=== PATIENT | female | born 1995 | race Caucasian/White ===

== ENCOUNTER 2024-12-25 18:26 | Emergency (ER) | payer SELFPAY ==
--- NOTE | 2024-12-25 18:33 | ED.FEMALEGU ---
HPI - Female Genitourinary General Chief complaint: Urogenital-Female Stated complaint: chills, lower back pain, nausea Time Seen by Provider: 12/25/24 18:45 Source: patient and RN notes reviewed Mode of arrival: ambulatory Limitations: no limitations History of Present Illness HPI Narrative: 29-year-old female presents [facility] complaining of urinary symptoms for 1 week. Patient says as she was having increased frequency and foul-smelling urine over the last week that she had a UTI and was taking [id number] medicine to help with her symptoms. Study today she has developed low back pain, fevers, chills, nausea, vomiting. Patient denies any abdominal pain, blood in urine or burning with urination. Patient was admitted about 9 months ago at a hospital for pyelonephritis he was given IV antibiotics. Patient says she has Zofran at home and she says it helps with nausea at the time she is able to keep fluids down until the medication wears off and then she will vomit again. A suggest took ibuprofen prior to arrival. Related Data Home Medications ?Medication ?Instructions ?Recorded ?Confirmed ?Last Taken ?Type lisdexamfetamine 30 mg capsule mg 12/25/24 Unknown History (Christine) Allergies Allergy/AdvReac Type Severity Reaction Status Date / Time No Known Allergies Allergy Verified 12/25/24 18:41 Review of Systems Review of Systems: CONSTITUTIONAL: Positive for fever, chills. Negative for body aches or sweats. EYES: Denies visual changes, redness, or discharge. ENT: Denies rhinorrhea, congestion, sore throat, or otalgia. CARDIOVASCULAR: Denies chest pain, palpitations, or edema. RESPIRATORY: Denies cough or dyspnea. GASTROINTESTINAL: Denies abdominal pain, or diarrhea. Positive for nausea and vomiting. GENITOURINARY: Denies dysuria or hematuria. Positive for increased frequency, hesitancy, SKIN: Denies rash or itching. MUSCULOSKELETAL: Positive for low back pain negative for joint pain, or myalgia. NEUROLOGIC: Denies headache, numbness, or weakness. PSYCHIATRIC: Denies anxiety or depression. All other systems reviewed are negative, except as documented in HPI. PMFSH Comments At the time of my signature, I reviewed and agree with the nursing past medical, surgical, social, and family history. There is no relevant family history pertinent to the patient complaint. Exam Narrative: GENERAL: This is a well-nourished, well-developed adult, in no apparent distress. They are non ill-appearing, nontoxic appearing. HEAD: normocephalic, atraumatic. EYES: Sclera clear/white. Conjunctiva normal. Vision is grossly intact. Extraocular movements intact EARS: External ears normal, Hearing grossly intact. NOSE: External nose normal THROAT: Mucous membranes moist, posterior pharynx clear, without erythema or swelling. Uvula midline. NECK: Neck supple, non-tender without lymphadenopathy, masses or thyromegaly. CARDIOVASCULAR: Tachycardic rate and rhythm without murmurs, gallops, or rubs. RESPIRATORY: Clear to auscultation. Breath sounds equal bilaterally. No wheezes, rales, or rhonchi. GASTROINTESTINAL: Abdomen soft, flat, non-tender, nondistended. Mild suprapubic tenderness. Bowel sounds are active. No hepato-splenomegaly, or palpable masses. No guarding. No rebound tenderness. SKIN: warm, Dry, intact with no suspicious lesions or rash, good texture and turgor. NEURO: awake, alert, and oriented to person, place and time. There were no obvious focal neurologic abnormalities. EXTREMITIES: No joint tenderness, effusion, or edema noted. BACK: Nontender without deformity. No CVA tenderness. Course Course Emergency Course: Portions of this record may have been created with voice recognition software Level of Care: Express Care Visit Vital Signs Vital signs: Vital Signs Temperature 100.2 F H 12/25/24 18:36 Pulse Rate 118 H 12/25/24 18:36 Respiratory Rate 20 12/25/24 18:36 Blood Pressure 147/93 H 12/25/24 18:36 Pulse Oximetry 100 12/25/24 18:36 Oxygen Delivery Room Air 12/25/24 18:36 Temperature 100.2 F H 12/25/24 18:36 Pulse Rate 118 H 12/25/24 18:36 Respiratory Rate 20 12/25/24 18:36 Blood Pressure 147/93 H 12/25/24 18:36 Pulse Oximetry 100 12/25/24 18:36 Oxygen Delivery Room Air 12/25/24 18:36 Reviewed MDM - Female Genitourinary MDM Narrative Medical decision making narrative: Patient's urine dipstick shows evidence of urinary tract infection. Patient did vomit once while she was here at the [facility]. Patient was given a dose of Zofran ODT followed by p.o. challenge. Patient tolerated p.o. challenge well without vomiting after Zofran administration. Patient states she is feeling better after drinking fluids and receiving Zofran. Given patient's history and symptoms it is likely she could be developing a pyelonephritis. Patient was given a dose of ceftriaxone. Will treat empirically with Augmentin. Discussed physical exam findings. Advised supportive measures and strict ER return precautions discussed. Pt is stable for outpt treatment and f/u. Differential Diagnosis Differential diagnosis: Likely urinary tract infection, cystitis and other (Pyelonephritis) Lab Data Attestation: I reviewed the patient's lab results. Critical Care Time Critical Care Time Critical Care Time: No Discharge Plan Discharge Clinical Impression: Urinary tract infection Qualifiers: Urinary tract infection type: site unspecified Hematuria presence: with hematuria Qualified Code(s): N39.0 - Urinary tract infection, site not specified Patient Disposition: Home Condition: Stable Instructions: Antibiotic Form, Urinary Tract Infection in Women (ED) Additional Instructions: You were given a shot of ceftriaxone this is a long-acting antibiotic. Take the antibiotic as prescribed Take the Zofran as needed for nausea and vomiting. The urine will be sent of for a culture to identify what type of bacteria is causing your infection. If the culture shows that the antibiotic will not get rid of your infection, you will be notified and a new antibiotic will be called in for you. Increase water intake you will need to follow up with your PCP, call to schedule an appointment. If your unable to keep any fluids or food down, worsening fevers, worsening pain, or any other concerns please go to the ER immediately. Patient Language: B[place]udian Prescriptions: New ondansetron 4 mg tablet,disintegrating 4 mg PO Q8H PRN (Reason: nausea and vomiting) Qty: 12 0RF amoxicillin-pot clavulanate 875-125 mg tablet 1 tablet PO Q12H 10 Days Qty: 20 0RF No Action lisdexamfetamine [Vyvanse] 30 mg capsule Follow-up/Referrals: PHYSICIAN NOT ON STAFF,NONSTAFF [Primary Care Provider] - Stand Alone Forms: Work/School Release IP Time of Disposition: 19:29
[2024-12-25 18:36] VITALS: BP 147/93; PULSE 118; RESP 20; TEMP 37.9; O2SAT 100
[2024-12-25] MEDS: ONDANSETRON HCL ODT 4 MG TABLET PO (18:57)
[2024-12-25] MEDS: cefTRIAXone 1 GM, LIDOCAINE 1% LOCAL INJ 2.1 ML IM (19:10)
--- NOTE | 2024-12-25 19:28 | PC.NURSE ---
1928 PT drinking water without difficulty no N/V at this time.
[2024-12-26 11:57] LABS: EDUAAPPEAR Clear; EDUABILI Negative (Negative); EDUABLOOD Trace (Negative); EDUACOLOR1 Light/Pale; EDUAGLUCOSE Negative (Negative); EDUAKETONE Negative (Negative); EDUALEUKO 1+ (Negative); EDUANITRATE Negative (Negative); EDUAPROTEIN Negative (Negative); EDUAUROBILI 0.2
== END 2024-12-25 19:41 | disposition home or self-care (01) ==
DX: N39.0 Urinary tract infection, site not specified (principal)
CPT/HCPCS: 81003; 87086; 96372; 99203; A9270; G0463; J0696; J2003

== ENCOUNTER 2025-04-11 12:34 | Emergency (ER) | payer OTHER, SELFPAY ==
--- NOTE | 2025-04-11 12:35 | ED_ITS ---
HPI - Nausea/Vomiting/Diarrhea General Chief complaint: Nausea/Vomiting/Diarrhea Stated complaint: Vomiting/Back Pain Time Seen by Provider: 04/11/25 12:35 Source: patient Mode of arrival: ambulatory Limitations: no limitations History of Present Illness HPI Narrative: Alisha is a 30-year-old female patient presenting to the clinic today with complaints of nausea, vomiting, and a rash to her mid upper back. She reports rash has been there for few days but she developed nausea and vomiting while work today. Rash is slightly itchy and mildly irritating to the mid upper back. Does report some slight abdominal cramping prior to having vomiting. No abdominal pain at this time. No fevers, chills, body aches. Denies any urinary symptoms. Last menstrual period was March 27, 2025. Denies any concern for pre gnancy. Has not taken any medications for her symptoms. Related Data Allergies Allergy/AdvReac Type Severity Reaction Status Date / Time No Known Allergies Allergy Verified 04/11/25 12:51 Review of Systems Review of Systems: Pertinent positives per HPI. Patient denies any fever, chills, rash, headache, visual changes, dizziness, cough, shortness of breath, chest pain, palpitations, diarrhea, constipation, abdominal pain, or any urinary issues. PMFSH Comments At the time of my signature, I reviewed and agree with the nursing past medical, surgical, social, and family history. There is no relevant family history pertinent to the patient complaint. Exam Narrative: General: Well-developed, well nourished, in no apparent distress Head: Normocephalic, atraumatic Eyes: Pupils equally round and reactive to light bilaterally, EOM intact, sclera and conjunctive clear, no discharge, lids normal Ears: TMs intact and clear, ear canals clear, no drainage, grossly hearing normal. Nose: Nares patent, no discharge, no inflammation, no sinus tenderness. Mouth: Oral pharynx without lesions or masses, good dentition, MMM. Neck: Supple, trachea midline, no enlargement of anterior or posterior cervical nodes, no thyroid masses or goiter palpable. Cardio: Regular rate and rhythm, s1 and s2 normal, no murmur appreciated. Resp: Clear to auscultation bilaterally, no rhonchi, rales, wheezing or rubs Abdomen: Soft, pliable, bowel sounds present in all quadrants, non-tender to palpation, no organomegly, no CVAT tenderness. Integumentary: [place], warm, and dry, circular, 1/2 dollar sized mildly raised, brown scaly rash with central clearing to the mid upper back Course Course Emergency Course: Portions of this record may have been created with voice recognition software. Level of Care: Express Care Visit Vital Signs Vital signs: Vital Signs Temperature 36.7 C 04/11/25 12:48 Pulse Rate 93 04/11/25 12:48 Respiratory Rate 20 04/11/25 12:48 Blood Pressure 138/90 04/11/25 12:48 Pulse Oximetry 100 04/11/25 12:48 Oxygen Delivery Room Air 04/11/25 12:48 Temperature 36.7 C 04/11/25 12:48 Pulse Rate 93 04/11/25 12:48 Respiratory Rate 20 04/11/25 12:48 Blood Pressure 138/90 04/11/25 12:48 Pulse Oximetry 100 04/11/25 12:48 Oxygen Delivery Room Air 04/11/25 12:48 Vital signs reviewed MDM - Nausea/Vomiting/Diarrhea MDM Narrative Medical decision making narrative: At the time of visit patient is resting comfortably on the exam table. Patient appears to be nontoxic. Complaints of nausea, vomiting, and a rash to her mid upper back. She reports rash has been there for few days but she developed nausea and vomiting while work today. Rash is slightly itchy and mildly irritating to the mid upper back. Does report some slight abdominal cramping prior to having vomiting. No abdominal pain at this time. No fevers, chills, body aches. Denies any urinary symptoms. Last menstrual period was March 27, 2025. Denies any concern for . Has not taken any medications for her symptoms. On exam patient has a circular rash with central clearing and scaling to the mid upper back. Abdominal assessment is normal. Plan: I suspect patient has tinea corpus to the mid upper back and acute nausea and vomiting. Prescription for Zofran and clotrimazole was sent to the pharmacy. Supportive measures were discussed with the patient and they voiced understanding discharge instructions and agrees to treatment plan. Return preca utions reviewed Differential Diagnosis Differential diagnosis: Likely food poisoning, gastroenteritis, drug-induced nausea and vomiting, dehydration and other (Tinea corpus, cellulitis, skin infection, impetigo, eczema) Discharge Plan Discharge Clinical Impression: Acute nausea with nonbilious vomiting, Tinea corporis Patient Disposition: Home Condition: Stable Instructions: Antibiotic Form, Tinea Corporis (ED), Acute Nausea and Vomiting (ED) Additional Instructions: Take prescription medications only as prescribed-clotrimazole cream and ondansetron Increase fluids and stay well hydrated May take Tylenol or motrin as directed on bottle for pain/fever Clear liquids x 24 hours then advance as tolerated for nausea/vomiting Go to the ED if you develop a worsening in your condition- high fever not controlled by Tylenol or Motrin, dehydration, weakness, lethargy, shortness of breath, or chest pain. Follow up with your PCP in 3-5 days if symptoms persist. Patient Language: Khmer Prescriptions: New clotrimazole 1 % cream 1 applic topical BID 14 Days Qty: 30 0RF ondansetron 8 mg tablet,disintegrating 8 mg PO Q8H PRN (Reason: nausea and vomiting) 3 Days Qty: 10 0RF Follow-up/Referrals: UNKNOWN,DOCTOR [Non-Staff] Stand Alone Forms: Work/School Release IP Time of Disposition: 13:00 Quality NIHSS Nursing Documentation ED NIHSS nursing documentation: reviewed/agree
[2025-04-11 12:48] VITALS: BP 138/90; PULSE 93; RESP 20; TEMP 36.7; O2SAT 100
== END 2025-04-11 13:07 | disposition home or self-care (01) ==
PROVIDERS: Emergency Provider Nurse Practitioner Family
DX: R11.2 Nausea with vomiting, unspecified (principal); B35.4 Tinea corporis
CPT/HCPCS: 99213; G0463

== ENCOUNTER 2025-05-22 10:08 | Emergency (ER) | payer OTHER, SELFPAY ==
[2025-05-22 10:18] VITALS: BP 115/85; PULSE 81; RESP 16; TEMP 36.3; O2SAT 100
--- NOTE | 2025-05-22 10:32 | ED.URI ---
HPI - URI/Sore Throat General Chief Complaint: Upper Respiratory Infection Stated Complaint: Fever/Sore Throat/Body Aches Time Seen by Provider: 05/22/25 10:44 Source: patient and RN notes reviewed Mode of arrival: ambulatory Limitations: no limitations History of Present Illness HPI Narrative: 30-year-old female presents with concern for 2 day history of general malaise, fever, body aches and scratchy throat. Reports she had an at home positive COVID test. Reports she needs a work ago. MD elicited complaint: cough and nasal congestion Related Data Allergies Allergy/AdvReac Type Severity Reaction Status Date / Time No Known Allergies Allergy Verified 05/22/25 10:17 Review of Systems Review of Systems: CONSTITUTIONAL: Reports malaise, chills, sweats EYES: Denies visual changes, redness, or discharge. ENT: Denies rhinorrhea, congestion, sinus pain, otalgia. Reports scratchy throat. CARDIOVASCULAR: Denies chest pain, palpitations, or edema. RESPIRATORY: Reports cough. Denies dyspnea. GASTROINTESTINAL: Denies abdominal pain, nausea, vomiting, diarrhea SKIN: Denies rash or itching. MUSCULOSKELETAL: Reports myalgia. NEUROLOGIC: Denies headache. All systems reviewed & are unremarkable except as noted in HPI and below PMFSH Comments At time of signature, agree with nursing past medical, surgical, social and family history. There is no relevant family history pertinent to the presenting complaint Exam Narrative: GENERAL: Well-appearing, well-nourished, and in no acute distress. HEAD: Normocephalic EYES: PERRLA, conjunctivae clear ENT: Nares clear. Mucous membranes moist. TM pearly cote with dull light reflex bilaterally; no tragal tenderness. Oropharynx not erythematous without lesions. Tonsils not enlarged and without exudate, no drooling, no hoarseness, no trismus, uvula midline. NECK: Supple. No lymphadenopathy CHEST: Clear to auscultation, breath sounds equal. No wheezing, rhonchi, rales, or stridor. No respiratory distress, speaks in full sentences. HEART: Regular rate and rhythm. No murmur heard. SKIN: Warm, dry, no rash. NEURO: Alert and oriented x3. PSYCH: Normal mood and affect Course Course Emergency Course: Patient is aware of diagnosis, understands and agrees to treatment plan. Anticipatory guidance given. Patient agrees to follow-up as directed and is aware of reasons to seek care at the emergency department. Portions of this record may have been created with voice recognition software Level of Care: Express Care Visit Vital Signs Vital signs: Vital Signs Temperature 97.4 F L 05/22/25 10:18 Pulse Rate 81 05/22/25 10:18 Respiratory Rate 16 05/22/25 10:18 Blood Pressure 115/85 05/22/25 10:18 Pulse Oximetry 100 05/22/25 10:18 Oxygen Delivery Room Air 05/22/25 10:18 Temperature 97.4 F L 05/22/25 10:18 Pulse Rate 81 05/22/25 10:18 Respiratory Rate 16 05/22/25 10:18 Blood Pressure 115/85 05/22/25 10:18 Pulse Oximetry 100 05/22/25 10:18 Oxygen Delivery Room Air 05/22/25 10:18 Reviewed. MDM - URI/Sore Throat MDM Narrative Medical decision making narrative: Differential diagnosis considered: [place] virus, strep pharyngitis, allergic rhinitis, upper respiratory tract infection, sinusitis, rhinosinusitis, nasopharyngitis. viral pharyngitis, otitis media, otitis externa, pneumonia, bronchitis, viral cough syndrome, viral syndrome, and influenza. Exam findings show no acute concerns or changes; patient is non-toxic appearing and is in no distress. Patient is appropriate for outpatient treatment and follow-up. Lab Data Attestation: I reviewed the patient's lab results. Critical Care Time Critical Care Time Critical Care Time: No Discharge Plan Discharge Clinical Impression: Positive self-administered antigen test for COVID-19 Patient Disposition: Home Condition: Stable Instructions: How to Recover from COVID-19 at Home (ED) Additional Instructions: Your rapid COVID test is positive. COVID is a virus, antibiotics are not effective against viruses. Your body has to kill viruses. ? Stay home when you are sick, except to get medical care. ? Stay home until your symptoms are resolving and you haven't had a fever for 24 hours. ? If you are self isolating at home where others live, use a separate room and bathroom for sick household members (if possible). Clean any shared rooms as needed, to avoid transmitting the virus. ? Wash your hands often with soap and water for at least 20 seconds, especially after blowing your nose, coughing, or sneezing; going to the bathroom; and before eating or preparing food. ? If soap and water are not available, use an alcohol-based hand non destructive tester with at least 60% alcohol. ? Have a supply of clean, disposable face masks. Everyone, no matter their COVID diagnosis, should wear face masks while in the home. - Over the counter medications such as Tylenol every 4 hours, ibuprofen every 6 hours (you can alternate these for maximum effect), Mucinex DM for cough, and psuedoephedrine (you must ask the pharmacist for this) can help relieve symptoms while your body fights off the virus. Watch for symptoms and learn when to seek emergency medical attention. If someone is showing any of these signs, seek emergency medical care immediately: ? Trouble breathing ? Persistent chest pain/pressure ? Confusion ? Inability to wake or stay awake ? Bluish lips or face Call 911 or call ahead to your local emergency room: Notify the die cutting machine operator that you are seeking care for someone who has or may have COVID Patient Language: [place] Prescriptions: New pseudoephedrine HCl [12 Hour Decongestant] 120 mg tablet extended release 120 mg PO Q12H PRN (Reason: nasal congestion) Qty: 20 0RF dextromethorphan-guaifenesin [Mucinex DM] 60-1,200 mg tablet extended release 12 hr 1 tablet PO Q12H Qty: 12 0RF No Action clotrimazole 1 % cream 1 applic topical BID 14 Days Qty: 30 0RF ondansetron 8 mg tablet,disintegrating 8 mg PO Q8H PRN (Reason: nausea and vomiting) 3 Days Qty: 10 0RF Follow-up/Referrals: PHYSICIAN,BEEF CATTLE SPECIALIST [Primary Care Provider, Internal Medicine] Stand Alone Forms: Work/School Release IP Time of Disposition: 10:51
== END 2025-05-22 10:57 | disposition home or self-care (01) ==
PROVIDERS: Emergency Provider Nurse Practitioner
DX: U07.1 COVID-19 (principal)
CPT/HCPCS: 99213; G0463